=== PATIENT | female | born 1945 | race Caucasian/White ===

== ENCOUNTER 2017-10-16 12:49 | Outpatient (CLI) | payer OTHER ==
--- NOTE | 2017-10-16 15:20 | MRI ---
LUMBAR SPINE MRI WITHOUT IV CONTRAST: HISTORY: A 72-year-old female with a history of low back pain with worsening. TECHNIQUE: Multiplanar, multisequence MRI examination of the lumbar spine is performed. FINDINGS: The conus medullaris region is unremarkable, terminating at L1. An approximately 2 cm in diameter, T 2 hyperintense, T1 hypointense, circumscribed focus at the lateral aspect of the left kidney, is prob ably a cyst with a small septation. Consider nonemergent follow-up renal ultrasound for further asse ssment of this. Generalized disk desiccation changes and ligament and facet hypertrophic changes. L1-L2: Unremarkable. L2-L3: There are some mixed, including some type I implant, changes anteriorly, with moderate centra l canal, lateral recess, and mild bilateral foraminal stenosis. L3-L4: Severe central spinal canal and lateral recess stenosis with moderate bilateral foraminal faye nosis, including some annular fissures. L4-L5: Mild anterolisthesis with multiple annular fissure and disk bulging with mild central canal a nd lateral recess stenosis and moderate bilateral foraminal stenosis. L5-S1: Disk bulging with multiple annular fissures with very slight thinning of the lateral recesses and moderate bilateral foraminal stenosis. IMPRESSION: 1. Multilevel variable severity canal, lateral recess, and foraminal stenosis, most marked at L3-L4, with some mixed, including type I endplate, changes at L2-L3. 2. Left renal circumscribed T2 hyperintense, T1 hypointense focus, probably a cyst with a septation. Follow-up ultrasound would be of benefit in further characterizing this. POS: [facility]
== END 2017-10-16 12:50 | disposition home or self-care (01) ==
LOC: SCSMRI 12:49
DX: M54.16 Radiculopathy, lumbar region (principal); M48.061 Spinal stenosis, lumbar region without neurogenic claudication; M99.83 Other biomechanical lesions of lumbar region
CPT/HCPCS: 72148

== ENCOUNTER 2019-05-04 08:01 | Outpatient (CLI) | payer OTHER ==
--- NOTE | 2019-05-04 11:03 | MRI ---
BRAIN MRI WITH AND WITHOUT CONTRAST: Date: 05/04/19 COMPARISON: None. HISTORY: Vertigo. TECHNIQUE: Multiplanar, multisequence MR imaging of the brain obtained with and without contrast using an sales and marketing intern al auditory canal protocol. FINDINGS: The diffusion-weighted imaging demonstrates no evidence for acute infarction. The regional bone marrow signal intensity appears within normal limits. Arterial flow-voids at the axial level of the skull base appear grossly unremarkable on the T2-weight ed imaging. Imaged paranasal sinuses and mastoid air cells appear grossly unremarkable. There is multifocal periventricular, deep, and subcortical white matter T2/FLAIR hyperintensity sugge sting significant small vessel disease. Thin section T2-weighted imaging through the skull base demonstrates no evidence for a mass in the re gion of the cerebellopontine angle on either side. The internal auditory canal, cochlea, vestibule, a nd semicircular canals demonstrate normal T2 signal intensity bilaterally. Postcontrast imaging demonstrates no abnormal enhancement at the level of the cerebellopontine angle, IAC, cochlea, vestibule, or semicircular canals on either side. Whole brain postcontrast imaging is unremarkable. IMPRESSION: Small vessel disease. No acute findings. POS: OFF
== END 2019-05-04 08:02 | disposition home or self-care (01) ==
LOC: BICMRI 08:01
PROVIDERS: ATTEND Internal Medicine
DX: H81.313 Aural vertigo, bilateral (principal); I73.9 Peripheral vascular disease, unspecified
CPT/HCPCS: 70553; 82565

== ENCOUNTER 2024-12-21 09:39 | Outpatient (CLI) | payer BC | END 2024-12-21 09:40 | disposition home or self-care (01) | LOC: NM 09:39 | PROVIDERS: ATTEND Internal Medicine | DX: E21.0 Primary hyperparathyroidism (principal) | CPT/HCPCS: 78072; A9500 ==